=== PATIENT | male | born 1995 | race American Indian/Alaskan Native ===

== ENCOUNTER 2018-05-21 03:20 | Emergency (ER) | payer MEDICAID, OTHER ==
[2018-05-21] MEDS ORDERED: Lidocaine 1% 30 ML SDV INJECT ONE (03:32)
[2018-05-21] MEDS ORDERED: Diphtheria,Pertussis(Acell),Tetanus Vaccine 0.5 ML SDV IM ONE (03:32)
--- NOTE | 2018-05-21 03:36 | EDM.PDOC ---
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 [No Known Home Meds] 05/21/18 [History] ED ROS GENERAL - Review of Systems Review Of Systems: ROS reveals no pertinent complaints other than HPI. ED EXAM, SKIN/RASH Exam: See Below Exam Limited By: No Limitations General Appearance: Alert, WD/WN, No Apparent Distress Ears: Hearing Grossly Normal Throat/Mouth: Normal Voice, No Airway Compromise Head: Atraumatic Neck: Non-Tender, Full Range of Motion Respiratory/Chest: No Respiratory Distress Cardiovascular: Regular Rate, Rhythm GI/Abdominal: Soft, Non-Tender Neurological: Alert, Oriented, Normal Cognition, Normal Gait, No Motor/Sensory Deficits Psychiatric: Normal Affect, Normal Mood Skin: Warm, Dry, Normal Color Location, Skin: Upper Extremity, Right ED SKIN PROCEDURES - Laceration/Wound Repair Left Wrist Lac/Wound length In cm: 6 (left wrist) Appearance: Subcutaneous, Linear, Clean Distal NVT: Neuro & Vascular Intact, No Tendon Injury Anesthetic Type: Local Local Anesthesia - Lidocaine (Xylocaine): 1% Plain Local Anesthetic Volume: 5cc Skin Prep: Chlorhexidine (Hibiciens) Saline Irrigation (cc's): 20 Exploration/Debridement/Repair: Wound Explored, No Foreign Material Found Closed with: Sutures Suture Size: 3-0 Suture Type: Nylon, Interrupted Sterile Dressing Applied: Provider Tetanus Status Addressed: Yes Complications: No Course - Vital Signs Last Recorded V/S: Last Vital Signs Temp 36.9 C 05/21/18 03:30 Pulse 69 05/21/18 03:30 Resp 20 05/21/18 03:30 BP 139/81 05/21/18 03:30 Pulse Ox 100 05/21/18 03:30 - Orders/Labs/Meds Orders: Active Orders 24 hr Category Date Time Status Vaccines to be Administered [RC] PER UNIT ROUTINE Care 05/21/18 03:33 Active Meds: Medications Discontinued Medications Generic Name Dose Route Start Last Admin Trade Name Anthony PRN Reason Stop Dose Admin Diphtheria/Tetanus/Acell Pertussis 0.5 ml 05/21/18 03:32 05/21/18 03:38 Adacel IM 05/21/18 03:33 0.5 ml .ONCE ONE Administration Lidocaine HCl 30 ml 05/21/18 03:32 05/21/18 03:40 Xylocaine-Mpf 1% INJECT 05/21/18 03:33 2 ml ONETIME ONE Administration Departure - Departure Time of Disposition: 04:02 Disposition: Home, Self-Care 01 Condition: Good Clinical Impression: Laceration of wrist without complication Qualifiers: Encounter type: initial encounter Laterality: left Qualified Code(s): S61.512A - Laceration without foreign body of left wrist, initial encounter - Discharge Information Instructions: Laceration Care, Adult, [id number] Forms: ED Department Discharge Additional Instructions: 1) keep wound clean dry covered 2) wound check if looks infected 3) suture removal 10 days - My Orders Last 24 Hours: My Active Orders 05/21/18 03:33 Vaccines to be Administered [RC] PER UNIT ROUTINE - Assessment/Plan Last 24 Hours: My Active Orders 05/21/18 03:33 Vaccines to be Administered [RC] PER UNIT ROUTINE
== END 2018-05-21 04:15 | disposition home or self-care (01) ==
LOC: DL.ED 03:20
DX: S61.512A Laceration without foreign body of left wrist, initial encounter (principal); W45.0XXA Nail entering through skin, initial encounter
CPT/HCPCS: 12002; 90471; 90715; 99282; 99283

== ENCOUNTER 2021-07-07 17:28 | Emergency (ER) | payer OTHER ==
[~2021-07-07 17:28] MED LIST: EPINEPHrine 1:10,000 1 MG/10 ML Syringe IV ONE; Naloxone 2 MG/2 ML Syringe IV ONE
[2021-07-07 17:51] LABS: ANION GAP 29.8 mEq/L (7-13); CHLORIDE,CL 103 mmol/L (98-107); SODIUM,NA 148 mmol/L (136-145)
--- NOTE | 2021-07-07 19:33 | EDM.PDOC ---
Scribed by Michaela Waggoner 07/07/211928 for Leighton Luu MD ED HPI GENERAL MEDICAL PROBLEM - General Chief Complaint: CPR in Progress Stated Complaint: AMBULANCE - CODE BLUE Time Seen by Provider: 07/07/21 17:12 Source of Information: Reports: EMS, EMS Notes Reviewed, Family (Grandparents and Mrs. Dawkins), Old Records, Provider (Dr. Valdes), RN, RN Notes Reviewed History Limitations: Reports: Other (CPR in progress) - History of Present Illness INITIAL COMMENTS - FREE TEXT/NARRATIVE: Pt arrives to ER from home by [facility] with report that pt suddenly collapsed at home with his girlfriend present. EMS reports the girlfriend call 911 immediately and a master police detective arrived 3 minutes after being dispatched and began CPR after finding the pt unresponsive, not breathing, and pulseless. EMS arrived, intubated the pt and established an IO. Pt found in PEA. Epinephrine 1mg IO given and CPR continued, pt found to convert to V-fib, shocked x4 with conversion back to PEA. EMS gave Narcan 2mg, Amiodarone IO (unknown mg), and Sodium BiCarb IO. Pt remained in PEA until arrival to ER. On arrival to ER pt was cool, mottled, unresponsive, pulseless, with no spon taneous respiratory effort, and pupils fixed and dilated. CPR was continued Epi. 1mg IO x2 doses, and Narcan 2mg IO x1. PEA persisted. The pt had received CPR and appropriate resuscitation for 30 minutes with response. Time out was called and all present agreed that resuscitation efforts were futile. I determined to stop the code, and declared time of [id number]. The survey engineer Dr. Valdes was notified. I informed the pt's grandparents of the in person in the doctor's lounge. Onset: Today - Related Data Allergies Allergy/AdvReac Type Severity Reaction Status Date / Time No Known Allergies Allergy Verified 05/21/18 03:31 Home Meds: Home Meds . [No Known Home Meds] 05/21/18 [History] Past Medical History - Past Surgical History Other Musculoskeletal Surgeries/Procedures:: surgery to the right great toe Social & Family History - Caffeine Use Caffeine Use: Reports: Soda ED ROS GENERAL - Review of Systems Review Of Systems: Unable To Obtain Reason Not Obtained: DOA ED EXAM, CPR - Physical Exam Exam: See Below Limited By: Unresponsive General Appearance: Obese, Other (CPR in progress) Eye Exam: Bilateral Eye: Other (pupils fixed and dilated) Nose: No Blood Throat/Mouth: Other (Intubated (by EMS NUCLEAR MEDICINE SPECIALIST)) Head: Atraumatic, Normocephalic Respiratory Chest: Other (Breath sounds only with [id number] ventilation via ET tube) Cardiovascular: Pulse with Compression, CPR In Progress GI/Abdominal Exam: Soft Extremities: Mottled Neurological: Unresponsive Skin Exam: Cool, Mottled Course - Orders/Labs/Meds Labs: Laboratory Tests 07/07/21 07/07/21 Range/Units 17:16 17:16 WBC 6.9 (5.0-10.0) 10^3/uL RBC 4.25 L (4.6-6.2) 10^6/uL Hgb 13.8 L (14.0-18.0) g/dL Hct 44.1 (40.0-54.0) % MCV 103.8 H (80-100) fL MCH 32.5 (27.0-34.0) pg MCHC 31.3 L (33.0-35.0) g/dL Plt Count 232 (150-450) 10^3/uL Neut % (Auto) 27.0 L (42.2-75.2) % Lymph % (Auto) 67.1 H (20.5-50.1) % [place] % (Auto) 4.5 (2-8) % Eos % (Auto) 0.7 L (1.0-3.0) % Baso % (Auto) 0.7 (0.0-1.0) % Add Manual Diff Yes Neutrophils % (Manual) 23 L (42-75) % Band Neutrophils % 5 % Lymphocytes % (Manual) 67 H (20-50) % Monocytes % (Manual) 4 (2-8) % Eosinophils % (Manual) 1 (1-3) % Sodium 148 H (136-145) mmol/L Potassium 2.8 L (3.5-5.1) mmol/L Chloride 103 (98-107) mmol/L Carbon Dioxide 18 L (21-32) mmol/L Anion Gap 29.8 H (7-13) mEq/L BUN 6 L (7-18) mg/dL Creatinine 1.32 H (0.70-1.30) mg/dL Est Cr Clr Drug Dosing TNP Estimated GFR (MDRD) > 60 BUN/Creatinine Ratio 4.5 (No establ ref range) Glucose 224 H (70-99) mg/dL Calcium 8.4 L (8.5-10.1) mg/dL Total Bilirubin 1.3 H (0.2-1.0) mg/dL AST 129 H (15-37) U/L ALT 71 H (16-63) U/L Alkaline Phosphatase 225 H (46-116) U/L Troponin I High Sens 46 (<=76) pg/mL Total Protein 7.6 (6.4-8.2) g/dL Albumin 3.2 L (3.4-5.0) g/dL Globulin 4.4 Albumin/Globulin Ratio 0.73 Ethyl Alcohol 13 (0) mg/dL Departure - Departure Time of Disposition: 17:21 Disposition: 20 Preliminary Cause of *Q: Cardiac Arrest Clinical Impression: Cardiac arrest - Discharge Information *PRESCRIPTION DRUG MONITORING PROGRAM REVIEWED*: No *COPY OF PRESCRIPTION DRUG MONITORING REPORT IN PATIENT [place]: No Forms: ED Department Discharge I have read and agree with the documentation that has been completed regarding this visit. By signing this record, I attest that the documentation was completed in my physical presence and is an accurate record of the encounter.
[2021-07-07] MEDS ORDERED: Naloxone 2 MG/2 ML Syringe ONE (20:59)
[2021-07-07] MEDS ORDERED: EPINEPHrine 1:10,000 1 MG/10 ML Syringe ONE (20:59)
== END 2021-07-07 19:30 | disposition expired ==
LOC: DL.ED 17:28
DX: I46.9 Cardiac arrest, cause unspecified (principal)
CPT/HCPCS: 36415; 80053; 80307; 84484; 85025; 92950; 99285-25; J0171; J2310